=== PATIENT | female | born 1975 | race Caucasian/White ===

== ENCOUNTER 2017-12-16 14:26 | Observation (INO) | payer SELFPAY ==
[~2017-12-16] VITALS: Ht 165.1 cm; Wt 88.5 kg
[~2017-12-16 14:26] MED LIST: OXYC-360 PO
[2017-12-16 14:37] VITALS: BP 113/57; PULSE 85; RESP 17; TEMP 98.9; O2SAT 99
[2017-12-16] MEDS ORDERED: SODIUM CHLOR 0.9% 1000 ML INJ 1,000 ML IV ONE (17:21)
[2017-12-16] MEDS ORDERED: SODIUM CHLORIDE 0.9% FLUSH 10 ML FLUSH IVF PRN (17:30)
--- NOTE | 2017-12-16 17:43 | RADRPT ---
EXAM DATE: 12/16/2017 5:35 PM EDT AGE/SEX: 42 years / Female INDICATIONS: Palpitations. CLINICAL DATA: This is the patient's initial encounter. Patient reports that signs and symptoms have been present for 1 day and indicates a pain score of 0/10. MEDICAL/SURGICAL HISTORY: None. None. COMPARISON: No prior exams available for comparison. FINDINGS: Portable AP view of the chest demonstrates a normal-sized cardiac silhouette. No effusion, consolidat ion, or pneumothorax is identified. The bones and soft tissues demonstrate no acute finding. CONCLUSION: No acute cardiopulmonary abnormality is identified. Electronically signed by: Joseph Gavin MD 12/16/2017 5:42 PM EDT
--- NOTE | 2017-12-16 17:44 | PD ---
HPI Chief Complaint: Syncope/Near-Syncope Time Seen by Provider: 17:03 Travel History International Travel<30 days: No Contact w/Intl Traveler<30days: No Traveled to known affect area: No History of Present Illness HPI 42 YO F presents to the ED for evaluation of near syncopal episode. This occurred around 930 this morning. Patient states that she was sorting recycling when she became very dizzy, she states that she slumped down to the ground and did not hit her head. She denies loss of consciousness. She states that she rested for a little bit and gradually felt better but has not returned to normal today. She endorses associated dizziness. She denies headache, vision changes, chest pain, palpitations, shortness of breath, abdominal pain, nausea, vomiting, dysuria, melena, hematochezia. She endorses history of iron deficiency anemia in , does not take any medications. Patient denies illicit drug use, cigarette smoking. LMP "this month." She went to [facility] and was found to have a low hemoglobin, was sent to the ED for further evaluation. Patient is primarily Cuban-speaking. She has a son at bedside who helps with translation. [facility] Past Medical History ?: Unknown : 3 Para: 1 Miscarriage: 1 Ectopic : No Ovarian Cysts: No Dilation and Curettage (D&C): Yes Tubal Ligation: No Past Surgical History Other Surgery: Yes (D&C x 1) Social History Alcohol Use: No Tobacco Use: No Allergies-Medications (Allergen,Severity, Reaction): Coded Allergies: No Known Allergies (Verified Adverse Reaction, Unknown, 12/16/17) Reported Meds & Prescriptions Reported Meds & Active Scripts Active No Active Prescriptions or Reported Medications Review of Systems Except as stated in HPI: all other systems reviewed are Neg Physical Exam Narrative GENERAL: Well-nourished, well-developed female no acute distress. SKIN: Focused skin assessment warm/dry. HEAD: Normocephalic. EYES: No scleral icterus. No injection or drainage. NECK: Supple, trachea midline. No JVD or lymphadenopathy. CARDIOVASCULAR: Regular rate and rhythm without murmurs, gallops, or rubs. RESPIRATORY: Breath sounds clear and equal bilaterally. No accessory muscle use. GASTROINTESTINAL: Abdomen soft, non-tender, nondistended. Active bowel sounds MUSCULOSKELETAL: No cyanosis, or edema. Walks with a normal gait. NEUROLOGICAL: Awake and alert. Cranial nerves II through XII intact. Motor and sensory grossly within normal limits. Five out of 5 muscle strength in all muscle groups. Normal speech. BACK: Nontender without obvious deformity. No CVA tenderness. Data Data Last Documented VS Vital Signs Date Time Temp Pulse Resp B/P (MAP) Pulse Ox O2 Delivery O2 Flow Rate FiO2 12/16/17 17:41 Room Air 12/16/17 14:37 98.9 85 17 113/57 (75) 99 Orders Orders Complete Blood Count With Diff (12/16/17 17:21) Comprehensive Metabolic Panel (12/16/17 17:21) Magnesium (Mg) (12/16/17 17:21) Ckmb (Isoenzyme) Profile (12/16/17 17:21) Troponin I (12/16/17 17:21) Act Partial Throm Time (Ptt) (12/16/17 17:21) Prothrombin Time / Inr (Pt) (12/16/17 17:21) Urinalysis - C+S If Indicated (12/16/17 17:21) Chest, Single Ap (12/16/17 17:21) Ct Brain W/O Iv Contrast(Rout) (12/16/17 17:21) Ecg Monitoring (12/16/17 17:21) Iv Access Insert/Monitor (12/16/17 17:21) Oximetry (12/16/17 17:21) Sodium Chloride 0.9% Flush (Ns Flush) (12/16/17 17:30) Sodium Chlor 0.9% 1000 Ml Inj (Ns 1000 M (12/16/17 17:21) Electrocardiogram (12/16/17 17:21) Ed Urine Pregnancytest Poc (12/16/17 17:21) Type And Screen (12/16/17 18:43) Admit Order (Ed Use Only) (12/16/17 19:02) Labs Laboratory Tests Test 12/16/17 17:55 White Blood Count 7.4 TH/MM3 Red Blood Count 4.26 MIL/MM3 Hemoglobin 8.2 GM/DL Hematocrit 28.1 % Mean Corpuscular Volume 65.9 FL Mean Corpuscular Hemoglobin 19.4 PG Mean Corpuscular Hemoglobin Concent 29.4 % Red Cell Distribution Width 20.0 % Platelet Count 386 TH/MM3 Mean Platelet Volume 8.5 FL Neutrophils (%) (Auto) 69.2 % Lymphocytes (%) (Auto) 21.3 % Monocytes (%) (Auto) 8.0 % Eosinophils (%) (Auto) 0.9 % Basophils (%) (Auto) 0.6 % Neutrophils # (Auto) 5.1 TH/MM3 Lymphocytes # (Auto) 1.6 TH/MM3 Monocytes # (Auto) 0.6 TH/MM3 Eosinophils # (Auto) 0.1 TH/MM3 Basophils # (Auto) 0.0 TH/MM3 CBC Comment DIFF FINAL Differential Comment Prothrombin Time 10.6 SEC Prothromb Time International Ratio 1.0 RATIO Activated Partial Thromboplast Time 22.1 SEC Urine Color YELLOW Urine Turbidity CLEAR Urine pH 7.0 Urine Specific [place] 1.005 Urine Protein NEG mg/dL Urine Glucose (UA) NEG mg/dL Urine Ketones NEG mg/dL Urine Occult Blood NEG Urine Nitrite NEG Urine Bilirubin NEG Urine Urobilinogen LESS THAN 2 mg/dL Urine Leukocyte Esterase NEG Urine WBC 1 /hpf Urine Squamous Epithelial Cells 1 /hpf Microscopic Urinalysis Comment CULT NOT INDICATED Blood Urea Nitrogen 10 MG/DL Creatinine 0.63 MG/DL Random Glucose 85 MG/DL Total Protein 8.9 GM/DL Albumin 4.2 GM/DL Calcium Level 8.8 MG/DL Magnesium Level 2.2 MG/DL Alkaline Phosphatase 107 U/L Aspartate Amino Transf (AST/SGOT) 46 U/L Alanine Aminotransferase (ALT/SGPT) 31 U/L Total Bilirubin 0.4 MG/DL Sodium Level 137 MEQ/L Potassium Level 3.8 MEQ/L Chloride Level 104 MEQ/L Carbon Dioxide Level 27.0 MEQ/L Anion Gap 6 MEQ/L Estimat Glomerular Filtration Rate 104 ML/MIN Total Creatine Kinase 100 U/L Troponin I LESS THAN 0.02 NG/ML [facility] Medical Decision Making Medical Screen Exam Complete: Yes Emergency Medical Condition: Yes Differential Diagnosis Vasovagal syncope versus dehydration versus anemia versus ACS versus ICH versus other Narrative Course 42 YO F presents to the ED for evaluation of near syncopal episode. She reports preceding dizziness. She was seen at [facility] and found to have low hemoglobin. She was sent to the ED for further evaluation. Vitals reviewed. Physical exam is reassuring. No focal neuro deficits. IV was established. Patient was administered 1 L normal saline. Patient was typed and screened. EKG rate 76, sinus rhythm. FL interval 186, QRS 97, QTc 4 2 ms. Normal axis. No acute ST changes. Reviewed by Dr. Guzman. CXR: No acute cardiopulmonary abnormality. Cardiac enzymes negative 1. CBC: WBC 7.4. Hemoglobin 8.2, HCT 21.8, MCV 65.9 Coags: INR 1.0. CMP: Unremarkable CT brain: Negative per radiology read. I discussed the results of the workup with the patient. Given the near syncopal episode coupled with the anemia will admit for observation. Patient's agreeable to this plan. I spoke with Dr. Ochoa who agrees to accept the patient to the medicine service. Please see medicine notes for disposition. Scripts No Active Prescriptions or Reported Meds Marisol Lemons Dec 16, 2017 17:44
[2017-12-16 18:17] LABS: AUTOMATED NEUTROPHIL # 5.1 TH/MM3 (1.8-7.7); BASOPHIL % 0.6 % (0.0-2.0); EOSINOPHIL # 0.1 TH/MM3 (0-0.4); EOSINOPHIL % 0.9 % (0.0-4.0); HEMATOCRIT 28.1 % (35.0-46.0); HEMOGLOBIN 8.2 GM/DL (11.6-15.3); LYMPH % 21.3 % (9.0-44.0); LYMPHOCYTE # 1.6 TH/MM3 (1.0-4.8); MEAN CELL VOLUME 65.9 FL (80.0-100.0); MEAN CORPUSCULAR HEMOGLOBIN 19.4 PG (27.0-34.0); MEAN PLATELET VOLUME 8.5 FL (7.0-11.0); MONOCYTE # 0.6 TH/MM3 (0-0.9); NEUT % 69.2 % (16.0-70.0); PLATELET COUNT 386 TH/MM3 (150-450); RED BLOOD COUNT 4.26 MIL/MM3 (4.00-5.30); WHITE BLOOD COUNT 7.4 TH/MM3 (4.0-11.0)
[2017-12-16 18:19] LABS: MEAN CORPUSCULAR HGB CONC 29.4 % (32.0-36.0)
[2017-12-16 18:22] LABS: PROTHROMBIN TIME - PATIENT 10.6 SEC (9.8-11.6)
[2017-12-16 18:32] LABS: ALT (GPT) 31 U/L (10-53)
[2017-12-16 18:41] LABS: ALBUMIN 4.2 GM/DL (3.4-5.0); ALKALINE PHOSPHATASE 107 U/L (45-117); AST (GOT) 46 U/L (15-37); BLOOD UREA NITROGEN 10 MG/DL (7-18); CALCIUM 8.8 MG/DL (8.5-10.1); CHLORIDE 104 MEQ/L (98-107); CREATININE 0.63 MG/DL (0.50-1.00); GLOMERULAR FILTRATION RATE 104 ML/MIN (>89); GLUCOSE,RANDOM 85 MG/DL (74-106); MAGNESIUM 2.2 MG/DL (1.5-2.5); SODIUM (NA) 137 MEQ/L (136-145); TOTAL BILIRUBIN ADULT 0.4 MG/DL (0.2-1.0); TOTAL PROTEIN 8.9 GM/DL (6.4-8.2); TROPONIN I LESS THAN 0.02 NG/ML (0.02-0.05)
[2017-12-16 18:45] LABS: BILIRUBIN, URINE NEG (NEG); BLOOD, URINE NEG (NEG); GLUCOSE,URINE NEG (NEG); KETONE, URINE NEG (NEG); NITRITE,URINE NEG (NEG); SQUAMOUS EPITHELIAL CELL URINE 1 /hpf (0-5); URINE COLOR YELLOW (YELLW/STRAW); URINE LEUKOCYTE ESTERASE NEG (NEG)
--- NOTE | 2017-12-16 18:47 | RADRPT ---
EXAM DATE: 12/16/2017 6:41 PM EDT AGE/SEX: 42 years / Female INDICATIONS: Dizziness. CLINICAL DATA: This is the patient's initial encounter. Patient reports that signs and symptoms have been present for 1 day and indicates a pain score of 2/10. MEDICAL/SURGICAL HISTORY: None. None. RADIATION DOSE: 35.43 CTDI (mGy) COMPARISON: No prior exams available for comparison. TECHNIQUE: CT of the head without contrast. Using automated exposure control and adjustment of the mA and/or kV according to patient size, radiation dose was kept as low as reasonably achievable to ob tain optimal diagnostic quality images. DICOM format image data is available electronically for revi ew and comparison. FINDINGS: Cerebrum: The ventricles are normal for age. No evidence of midline shift, mass lesion, hemorrhage or acute infarction. No extraaxial fluid collections are seen. Posterior Fossa: The cerebellum and brainstem are intact. The 4th ventricle is midline. The cerebe llopontine angle is unremarkable. Extracranial: The visualized portion of the orbits is intact. Skull: The calvaria is intact. No evidence of skull fracture. CONCLUSION: 1. Negative CT Head non contrast. Electronically signed by: Carlos Eduardo Okeefe MD 12/16/2017 6:45 PM EDT
[2017-12-16] MEDS ORDERED: SODIUM CHLORIDE 0.9% FLUSH 10 ML FLUSH IV FLUSH PRN (19:30)
--- NOTE | 2017-12-16 19:58 | HHI.HP ---
[facility] No Primary Care Physician Admission Diagnosis anemia, syncope Diagnoses: (1) Anemia Chief Complaint: Dizziness and near syncopal episode Travel History International Travel<30 Days: No Contact w/Intl Traveler <30 Da: No Traveled to Known Affected Are: No History of Present Illness Ms. Sterling is a 42 y/o female with a history of iron deficiency anemia during presented to the ER with complaints of dizziness and near syncope on 12/16/17. Chest x-ray and head CT were negative but her hemoglobin was 8.2 on admission and she is admitted for observation under the doctors hospitalist service. The patient is seen in the CDU with her son and at the bedside. She reports a heavy LMP 12/02/17. She denies hematuria, hemoptysis, bloody stool, or black stools. She denies nausea, vomiting, diarrhea, or fevers. She was at work at the [employer] plant and bent over to pick something up and when she stood up, she felt very dizzy and nearly passed out. She never lost consciousness and did not hit her head. She's never had symptoms like this before but had iron deficiency anemia during 19 years ago. She has never required a blood transfusion in the past. Review of Systems Except as stated in HPI: all other systems reviewed are Neg Past Family Social History Past Medical History Iron deficiency anemia during . Past Surgical History Laparoscopic right salpingectomy 11/30/09 - Dr. Forbes for ectopic D&C Reported Medications Reported Meds & Active Scripts Active No Active Prescriptions or Reported Medications . Allergies: Coded Allergies: No Known Allergies (Verified Allergy, Unknown, 12/16/17) Family History Mother with diabetes No family history of bleeding disorders or cancer . Social History Tobacco: denies Alcohol: denies Illicit Drugs: denies . Physical Exam Vital Signs Vital Signs Date Time Temp Pulse Resp B/P (MAP) Pulse Ox O2 Delivery O2 Flow Rate FiO2 12/16/17 17:41 Room Air 12/16/17 14:37 98.9 85 17 113/57 (75) 99 Physical Exam GENERAL: This is a Turkish-speaking overweight middle-aged female patient, in no apparent distress. SKIN: No rashes, ecchymoses or lesions. Cool and dry. Skin tone appears somewhat pale. HEAD: Atraumatic. Normocephalic. No temporal or scalp tenderness. EYES: No scleral icterus. No injection or drainage. ENT: Nose without bleeding, purulent drainage. NECK: Trachea midline. No JVD. CARDIOVASCULAR: Regular rate and rhythm without murmurs, gallops, or rubs. No carotid bruits auscultated bilaterally. RESPIRATORY: Clear to auscultation. Breath sounds equal bilaterally. No wheezes , rales, or rhonchi. GASTROINTESTINAL: Abdomen soft, non-tender, nondistended. No guarding. MUSCULOSKELETAL: Extremities without clubbing, cyanosis, or edema. No calf tenderness. NEUROLOGICAL: Awake and alert. Motor and sensory grossly within normal limits. Normal speech. . Laboratory Laboratory Tests Test 12/16/17 17:55 White Blood Count 7.4 Red Blood Count 4.26 Hemoglobin 8.2 Hematocrit 28.1 Mean Corpuscular Volume 65.9 Mean Corpuscular Hemoglobin 19.4 Mean Corpuscular Hemoglobin Concent 29.4 Red Cell Distribution Width 20.0 Platelet Count 386 Mean Platelet Volume 8.5 Neutrophils (%) (Auto) 69.2 Lymphocytes (%) (Auto) 21.3 Monocytes (%) (Auto) 8.0 Eosinophils (%) (Auto) 0.9 Basophils (%) (Auto) 0.6 Neutrophils # (Auto) 5.1 Lymphocytes # (Auto) 1.6 Monocytes # (Auto) 0.6 Eosinophils # (Auto) 0.1 Basophils # (Auto) 0.0 CBC Comment DIFF FINAL Differential Comment Prothrombin Time 10.6 Prothromb Time International Ratio 1.0 Activated Partial Thromboplast Time 22.1 Urine Color YELLOW Urine Turbidity CLEAR Urine pH 7.0 Urine Specific [place] 1.005 Urine Protein NEG Urine Glucose (UA) NEG Urine Ketones NEG Urine Occult Blood NEG Urine Nitrite NEG Urine Bilirubin NEG Urine Urobilinogen LESS THAN 2 Urine Leukocyte Esterase NEG Urine WBC 1 Urine Squamous Epithelial Cells 1 Microscopic Urinalysis Comment CULT NOT INDICATED Blood Urea Nitrogen 10 Creatinine 0.63 Random Glucose 85 Total Protein 8.9 Albumin 4.2 Calcium Level 8.8 Magnesium Level 2.2 Alkaline Phosphatase 107 Aspartate Amino Transf (AST/SGOT) 46 Alanine Aminotransferase (ALT/SGPT) 31 Total Bilirubin 0.4 Sodium Level 137 Potassium Level 3.8 Chloride Level 104 Carbon Dioxide Level 27.0 Anion Gap 6 Estimat Glomerular Filtration Rate 104 Total Creatine Kinase 100 Troponin I LESS THAN 0.02 Result Diagram: 12/16/17175412/16/171754 Imaging Last Impressions Head CT 12/16/17 1721 Signed Impressions: CONCLUSION: 1. Negative CT Head non contrast. Chest X-Ray 12/16/171720 Signed Impressions: CONCLUSION: No acute cardiopulmonary abnormality is identified. . Caprini VTE Risk Assessment Caprini VTE Risk Assessment: Mod/High Risk (score >= 2) Caprini Risk Assessment Model Point Value = 1 Point Value = 2 Point Value = 3 Point Value = 5 Age 41-60 Minor surgery BMI > 25 kg/m2 Swollen legs Varicose veins or History of unexplained or recurrent spontaneous Oral contraceptives or hormone replacement Sepsis (< 1 month) Serious lung disease, including pneumonia (< 1 month) Abnormal pulmonary function Acute myocardial infarction Congestive heart failure (< 1 month) History of inflammatory bowel disease Medical patient at bed rest Age 61-74 Arthroscopic surgery Major open surgery (> 45 min) Laparoscopic surgery (> 45 min) Malignancy Confined to bed (> 72 hours) Immobilizing plaster cast Central venous access Age >= 75 History of VTE Family history of VTE Factor V Leiden Prothrombin [id number] Lupus anticoagulant Anticardiolipin antibodies Elevated serum homocysteine Heparin-induced thrombocytopenia Other congenital or acquired thrombophilia Stroke (< 1 month) Elective arthroplasty Hip, pelvis, or leg fracture Acute spinal cord injury (< 1 month) Prophylaxis Regimen Total Risk Factor Score Risk Level Prophylaxis Regimen 0-1 Low Early ambulation 2 Moderate Order ONE of the following: *Sequential Compression Device (SCD) *Heparin 5000 units SQ BID 3-4 Higher Order ONE of the following medications: *Heparin 5000 units SQ TID *Enoxaparin/Lovenox 40 mg SQ daily (WT < 150 kg, CrCl > 30 mL/min) *Enoxaparin/Lovenox 30 mg SQ daily (WT < 150 kg, CrCl > 10-29 mL/min) *Enoxaparin/Lovenox 30 mg SQ BID (WT < 150 kg, CrCl > 30 mL/min) AND/OR *Sequential Compression Device (SCD) 5 or more Highest Order ONE of the following medications: *Heparin 5000 units SQ TID (Preferred with Epidurals) *Enoxaparin/Lovenox 40 mg SQ daily (WT < 150 kg, CrCl > 30 mL/min) *Enoxaparin/Lovenox 30 mg SQ daily (WT < 150 kg, CrCl > 10-29 mL/min) *Enoxaparin/Lovenox 30 mg SQ BID (WT < 150 kg, CrCl > 30 mL/min) AND *Sequential Compression Device (SCD) Assessment and Plan Problem List: (1) Near syncope ICD Code: R55 - Syncope and collapse (2) Symptomatic anemia ICD Code: D64.9 - Anemia, unspecified Status: Acute Assessment and Plan Ms. Sterling is a 42 y/o female with a history of iron deficiency anemia during presented to the ER with complaints of dizziness and near syncope on 12/16/17. Chest x-ray and head CT were negative but her hemoglobin was 8.2 on admission and she is admitted for observation under the [facility] service. Symptomatic Anemia - check iron/TIBC profile - Recheck H&H at midnight and transfuse as indicated - discussed with the patient that she will need to f/u with an outpatient ob/ air saw operator regarding menorrhagia - consult placed with case management for assistance Near syncope - most likely secondary to anemia - continuous cardiac telemetry to monitor cardiac rate and rhythm - neurochecks q4h - check orthostatic vital signs - monitor vital signs q4h DVT prophylaxis - SCDs 12/17/2017: patient's hgb dropped to 6.8 and 22.7 on recheck - will transfuse 2 units PRBC for symptomatic anemia Discussed Condition With Patient, patient's family, Dr. Ochoa, and RN . Problem Qualifiers (1) Anemia: Qualified Codes: D64.9 - Anemia, unspecified Nan Morton Dec 16, 2017 19:58
[2017-12-16] MEDS: SODIUM CHLORIDE 0.9% FLUSH 10 ML FLUSH IV FLUSH SCH (21:00)
[2017-12-16 21:51] VITALS: BP 110/55; PULSE 75; RESP 16; TEMP 98.4; O2SAT 100
[2017-12-17] VITALS (7 sets, daily range): BP systolic 98–119; BP diastolic 51–59; PULSE 68–83; RESP 14–18; TEMP 98.2–98.9; O2SAT 97–100
[2017-12-17 00:38] LABS: HEMATOCRIT 22.7 % (35.0-46.0)
[2017-12-17 00:47] LABS: HEMOGLOBIN 6.8 GM/DL (11.6-15.3)
[2017-12-17] MEDS ORDERED: SODIUM CHLOR 0.9% 250 ML INJ 250 ML IV ONE (01:15)
[2017-12-17] MEDS: SODIUM CHLORIDE 0.9% FLUSH 10 ML FLUSH IV FLUSH SCH (09:00)
[2017-12-17 11:09] LABS: AUTOMATED NEUTROPHIL # 3.2 TH/MM3 (1.8-7.7); BASOPHIL % 0.4 % (0.0-2.0); EOSINOPHIL # 0.1 TH/MM3 (0-0.4); HEMATOCRIT 32.8 % (35.0-46.0); HEMOGLOBIN 9.9 GM/DL (11.6-15.3); LYMPH % 25.1 % (9.0-44.0); LYMPHOCYTE # 1.2 TH/MM3 (1.0-4.8); MEAN CORPUSCULAR HEMOGLOBIN 20.7 PG (27.0-34.0); MEAN CORPUSCULAR HGB CONC 30.1 % (32.0-36.0); MEAN PLATELET VOLUME 8.6 FL (7.0-11.0); MONO % 6.9 % (0.0-8.0); MONOCYTE # 0.3 TH/MM3 (0-0.9); NEUT % 65.6 % (16.0-70.0); PLATELET COUNT 317 TH/MM3 (150-450); RED BLOOD COUNT 4.76 MIL/MM3 (4.00-5.30); RED CELL DISTRIBUTION WIDTH 20.7 % (11.6-17.2); WHITE BLOOD COUNT 4.8 TH/MM3 (4.0-11.0)
[2017-12-17 11:11] LABS: ALBUMIN 3.8 GM/DL (3.4-5.0); ALT (GPT) 26 U/L (10-53); AST (GOT) 25 U/L (15-37); BICARBONATE 22.5 MEQ/L (21.0-32.0); BLOOD UREA NITROGEN 7 MG/DL (7-18); CALCIUM 8.6 MG/DL (8.5-10.1); CHLORIDE 110 MEQ/L (98-107); CREATININE 0.56 MG/DL (0.50-1.00); GLOMERULAR FILTRATION RATE 119 ML/MIN (>89); GLUCOSE,RANDOM 125 MG/DL (74-106); IRON (FE) 28 MCG/DL (50-170); SODIUM (NA) 141 MEQ/L (136-145)
[2017-12-17 11:15] LABS: % SATURATION IRON PROFILE 5.2 % (20-50); ALKALINE PHOSPHATASE 103 U/L (45-117); TOTAL BILIRUBIN ADULT 0.5 MG/DL (0.2-1.0); TOTAL IRON BINDING CAPACITY 538 MCG/DL (250-450); TOTAL PROTEIN 8.2 GM/DL (6.4-8.2)
[2017-12-17] MEDS ORDERED: FERROUS SULFATE 325 MG (65 MG ELEMENTAL IRON) TAB PO ONE (12:15)
--- NOTE | 2017-12-17 12:37 | HHI.PR ---
Subjective Remarks Follow-up for anemia, menorrhagia. The patient is seen with her son at bedside who assisted in translation per the request of the patient. Patient reports feeling much better today after receiving blood transfusion yesterday. She states she has been ambulating to the restroom multiple times without any lightheadedness or dizziness. Denies any chest pain, palpitations, or shortness of breath. She denies any further vaginal bleeding. Denies any pelvic or abdominal pain. She has no other medical complaints at this time. She wants to go home. Discussed importance of following up with mammalogist. Objective Vitals Vital Signs Date Time Temp Pulse Resp B/P (MAP) Pulse Ox O2 Delivery O2 Flow Rate FiO2 12/17/17 07:28 98.3 77 18 105/57 (73) 98 106/56 (73) 113/59 (77) 12/17/17 05:51 98.9 83 16 98/55 98 12/17/17 02:37 98.5 74 18 110/56 97 12/17/17 02:06 98.2 73 18 106/51 98 12/17/17 00:19 98.4 79 16 119/56 (77) 100 12/16/17 21:51 98.4 75 16 110/55 (73) 100 12/16/17 17:41 Room Air 12/16/17 14:37 98.9 85 17 113/57 (75) 99 I/O 12/16/17 12/16/17 12/16/17 12/17/17 12/17/17 12/17/17 07:00 15:00 23:00 07:00 15:00 23:00 Intake Total 440 ml 420 ml Balance 440 ml 420 ml Intake Packed Cells 400 ml 400 ml Blood Product IV Normal Saline Flush 40 ml 20 ml Result Diagram: 12/17/17 1010 12/17/17 1010 Imaging Last Impressions Head CT 12/16/17 172 Signed Impressions: CONCLUSION: 1. Negative CT Head non contrast. Chest X-Ray 12/16/171720 Signed Impressions: CONCLUSION: No acute cardiopulmonary abnormality is identified. Objective Remarks GENERAL: Well-nourished, well-developed middle-aged female patient in [facility]. SKIN: Warm and dry. No rash. HEENT: Normocephalic. Atraumatic. Pupils equal and round. Mucous membranes pink and moist. CARDIOVASCULAR: Regular rate and rhythm. No murmur appreciated. RESPIRATORY: No accessory muscle use. Clear to auscultation. Breath sounds equal bilaterally. GASTROINTESTINAL: Abdomen soft, non-tender, nondistended. Normoactive bowel sounds x4. MUSCULOSKELETAL: No obvious deformities. Extremities without clubbing, cyanosis , or edema. NEUROLOGICAL: Awake and alert. No obvious cranial nerve deficits. Motor grossly within normal limits. Moving all extremities spontaneously. Normal speech. PSYCHIATRIC: Appropriate mood and affect; insight and judgment normal. Medications and IVs Current Medications Medications (Trade) Dose Ordered Sig/[place] Route Start Time Stop Time Status Last Admin (NS Flush) 2 ml UNSCH PRN IVF 12/16/17 17:30 (NS Flush) 2 ml UNSCH PRN IV FLUSH 12/16/17 19:30 (NS Flush) 2 ml BID IV FLUSH 12/16/17 21:00 12/17/17 09:00 Sodium Chloride 250 ml @ 15 mls/hr ONCE ONCE IV 12/17/17 01:15 12/17/17 17:54 12/17/17 01:15 (Ferrous Sulfate) 325 mg BID@12,17 PO 12/17/17 17:00 A/P Problem List: (1) Near syncope ICD Code: R55 - Syncope and collapse (2) Symptomatic anemia ICD Code: D64.9 - Anemia, unspecified Status: Acute Assessment and Plan Ms. Sterling is a 42 y/o female with a history of iron deficiency anemia during presented to the ER with complaints of dizziness and near syncope on 12/16/17. Chest x-ray and head CT were negative but her hemoglobin was 8.2 on admission and she is admitted for observation. Symptomatic Anemia: Secondary to recent menorrhagia. -Iron panel consistent with iron deficiency -Hemoglobin dropped from 8.2 to 6.8 -s/p 2u pRBC transfusion on 12/17 -repeat Hgb 9.9 -started on ferrous sulfate 325mg po bid -discussed with the patient that she will need to f/up with an outpatient ob/ mitten stitcher for further evaluation of menorrhagia -consulted case management for assistance with follow up -symptoms resolved, stable for discharge Near syncope - most likely secondary to anemia -continuous cardiac telemetry to monitor cardiac rate and rhythm -neurochecks q4h -orthostatic vital signs negative -monitor vital signs q4h -symptoms resolved s/p blood transfusion DVT prophylaxis- SCDs; avoid chemoprophylaxis with anemia Discharge Planning Discharge patient to home Condition on discharge: Stable Regular Diet as tolerated Ad Isaura activity Rx written: ferrous sulfate 325mg po bid Follow-up with primary care physician and gynecology within 1 week Natalia Martin PA-C Dec 17, 2017 12:37 pm
[2017-12-17] MEDS ORDERED: FERR325T20 PO (12:47)
--- NOTE | 2017-12-17 12:48 | HHI.DCPOC ---
Discharge Care Plan Diagnosis: (1) Anemia (2) Heavy menstrual bleeding (3) Iron deficiency Goals to Promote Your Health * To prevent worsening of your condition and complications * To maintain your health at the optimal level Directions to Meet Your Goals Take your medications as prescribed Follow your dietary instruction Follow activity as directed Keep your appointments as scheduled Take your immunizations and boosters as scheduled If your symptoms worsen call your PCP, if no PCP go to Urgent Care Center or Emergency Room Smoking is Dangerous to Your Health. Avoid second hand smoke Call the 24-hour hour crisis hotline for domestic abuse at Natalia Martin PA-C Dec 17, 2017 12:48 pm
[2017-12-17] MEDS ORDERED: FERROUS SULFATE 325 MG (65 MG ELEMENTAL IRON) TAB PO SCH (17:00)
--- NOTE | 2017-12-17 21:05 | EKG ---
Date Performed: 12/16/2017 Time Performed: 17:55:40 PTAGE: 42 years EKG: Sinus rhythm NORMAL ECG NO PREVIOUS TRACING DOCTOR: Hudson Shaffer Interpretating Date/Time 12/17/2017 21:05:01
== END 2017-12-17 14:59 | disposition home or self-care (01) ==
LOC: NEPD 14:26 → NEDA 19:03 → NEPHCDU 20:55
PROVIDERS: ADMIT Hospitalist; ATTEND Hospitalist
DX: R55 Syncope and collapse (principal); R42 Dizziness and giddiness; D64.9 Anemia, unspecified; N92.0 Excessive and frequent menstruation with regular cycle; E61.1 Iron deficiency
CPT/HCPCS: 36430; 70450; 71045; 80053; 81001; 82550; 83540; 83550; 83735; 84484; 84703; 85014; 85018; 85025; 85610; 85730; 86850; 86900; 86901; 86920; 93005; 96360; 96361; 99285; G0378; J7030; J7050; P9016